=== PATIENT | female | born 1960 | race Caucasian/White ===

== ENCOUNTER → 2020-06-12 10:47 | Outpatient (CLI) | payer OTHER, SELFPAY ==
--- NOTE | ~2020-06-12 | MM_ITS ---
EXAMINATION: MM screening sussy BI w vianney HISTORY: Screening TECHNIQUE: Craniocaudal and mediolateral oblique 3-D tomosynthesis images were obtained and synthetic 2-D images were generated. CAD analysis was submitted and interpreted. COMPARISON: Comparison to multiple prior studies sequentially, with oldest reviewed study dated 09/2013. BREAST PARENCHYMAL COMPOSITION: There are scattered areas of fibroglandular density. FINDINGS: There is no evidence of suspicious mass, calcification, or architectural distortion to sugg est malignancy in either breast. There has been no suspicious interval change. IMPRESSION: 1. No mammographic evidence of malignancy. 2. Recommend routine screening mammography in one year. BI-RADS Category 1: Negative Reviewed, dictated and finalized at location A. 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
== END ==
PROVIDERS: PCP Family Medicine; Visit Provider Obstetrics & Gynecology
DX: Z12.31 Encounter for screening mammogram for malignant neoplasm of breast (principal)
CPT/HCPCS: 77063; 77067

== ENCOUNTER → 2021-01-01 10:22 | Outpatient (CLI) | payer OTHER, SELFPAY ==
--- NOTE | ~2021-01-01 | US_ITS ---
EXAMINATION: US retroperitoneal duplex ltd DATE: 01/01/2021 11:08 INDICATION: Hypertension. TECHNIQUE: Multiple grayscale, color Doppler, and pulsed Doppler images of the kidneys and renal david giovanny were obtained. COMPARISON: Ultrasound 06/19/2019 FINDINGS: The aorta peak systolic velocity is 102 cm/s. The right renal artery peak systolic velocity is 109 cm /s in the proximal segment, 102 cm/s in the mid segment, and 79 cm/s in the distal segment. The left renal artery peak systolic velocity is 84 cm/s in the proximal segment, 75 cm/s in the mid segment, a nd 68 cm/s in the distal segment. IMPRESSION: 1. No Doppler evidence of renal artery stenosis. Reviewed, dictated and finalized at location A.
--- NOTE | ~2021-01-01 | US_ITS ---
EXAMINATION: US renal BI DATE: 01/01/2021 11:08 INDICATION: Stage IIIB chronic kidney disease. TECHNIQUE: Multiple ultrasound grayscale images of the kidneys were obtained. COMPARISON: Ultrasound 06/19/2019 FINDINGS: The right kidney measures 9.5 x 5.4 x 4.7 cm. The left kidney measures 9.9 x 6.1 x 4.6 cm. The kidney s demonstrate normal parenchymal echogenicity. There is a 3.4 cm mass in right kidney upper pole. The re is no hydronephrosis. The bladder is normal. IMPRESSION: 1. 3.4 cm mass in right kidney upper pole suspicious for renal cell carcinoma. Abdomen CT without an d with contrast is recommended. 2. Normal kidney sizes. No hydronephrosis. Reviewed, dictated and finalized at location A. IMPRESSION: 1. 3.4 cm mass in right kidney upper pole suspicious for renal cell carcinoma. Abdomen CT without and with contrast is recommended. 2. Normal kidney sizes. No hydronephrosis.
== END ==
PROVIDERS: PCP Family Medicine; Visit Provider Internal Medicine Nephrology
DX: I12.9 Hypertensive chronic kidney disease with stage 1 through stage 4 chronic kidney disease, or unspecified chronic kidney disease (principal); N18.32 Chronic kidney disease, stage 3b
CPT/HCPCS: 76775; 93976

== ENCOUNTER → 2021-06-03 10:08 | Outpatient (CLI) | payer OTHER, SELFPAY ==
--- NOTE | ~2021-06-03 | MM_ITS ---
EXAMINATION: MM screening sussy BI w vianney HISTORY: Screening mammogram TECHNIQUE: Craniocaudal and mediolateral oblique 3-D tomosynthesis images were obtained and synthetic 2-D images were generated. CAD analysis was submitted and interpreted. COMPARISON: 06/12/2020, 06/21/2019, 06/16/2018 bilateral screening mammogram examinations BREAST PARENCHYMAL COMPOSITION: There are scattered areas of fibroglandular density. FINDINGS: There is no evidence of suspicious mass, calcification, or architectural distortion to sugg est malignancy in either breast. There has been no suspicious interval change. IMPRESSION: 1. No mammographic evidence of malignancy. 2. Recommend routine screening mammography in one year. BI-RADS Category 1: Negative Reviewed, dictated and finalized at location A. 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
== END ==
PROVIDERS: PCP Family Medicine; Visit Provider Obstetrics & Gynecology
DX: Z12.31 Encounter for screening mammogram for malignant neoplasm of breast (principal)
CPT/HCPCS: 77063; 77067

== ENCOUNTER → 2022-02-06 07:50 | Outpatient (CLI) | payer BC, SELFPAY ==
--- NOTE | ~2022-02-06 | US_ITS ---
EXAMINATION: US retroperitoneal comp DATE: 02/06/2022 08:19 INDICATION: 3b chronic kidney disease TECHNIQUE: Multiple ultrasound grayscale images of the retroperitoneum were obtained. COMPARISON: 01/01/2021 FINDINGS: The right kidney measures 8.7 x 4.0 x 5.5 cm. The left kidney measures 10.2 x 5.2 x 5.0 cm. The kidne ys demonstrate normal parenchymal echogenicity. 3.1 cm complex right superior lateral renal mass, lydia ssly stable given interval differences in technique. 0.7 cm lateral left renal cyst. There is no hydr onephrosis. The bladder is normal, prevoid volume 149.8 mL. Post void volume 0 mL. IMPRESSION: 1. Suspicious right renal mass. If outside imaging has not been performed, prior recommendation for CT of the abdomen without and with contrast is unchanged. Reviewed, dictated and finalized at location K. IMPRESSION: 1. Suspicious right renal mass. If outside imaging has not been performed, christiana or recommendation for CT of the abdomen without and with contrast is unchanged.
== END ==
PROVIDERS: PCP Family Medicine; Visit Provider Internal Medicine Nephrology
DX: R79.89 Other specified abnormal findings of blood chemistry (principal); N17.9 Acute kidney failure, unspecified
CPT/HCPCS: 76770

== ENCOUNTER → 2022-06-10 12:53 | Outpatient (CLI) | payer BC, SELFPAY ==
--- NOTE | ~2022-06-10 | MM_ITS ---
EXAMINATION: MM screening [facility] BI w vianney HISTORY: Screening mammogram TECHNIQUE: Craniocaudal and mediolateral oblique 3-D tomosynthesis images were obtained and synthetic 2-D images were generated. CAD analysis was submitted and interpreted. COMPARISON: 06/03/2021, 06/12/2020, 06/21/2019 BREAST PARENCHYMAL COMPOSITION: There are scattered areas of fibroglandular density. FINDINGS: No suspicious mass, calcification, or architectural distortion are identified in either kin ast to suggest malignancy. There has been no suspicious interval change. IMPRESSION: 1. No mammographic evidence of malignancy. 2. Recommend routine screening mammography in one year. BI-RADS Category 1: Negative Reviewed, dictated and finalized at location A. ASSISTANT
== END ==
PROVIDERS: PCP Family Medicine; Visit Provider Obstetrics & Gynecology
DX: Z12.31 Encounter for screening mammogram for malignant neoplasm of breast (principal)
CPT/HCPCS: 77063; 77067

== ENCOUNTER → 2023-03-10 09:21 | Outpatient (CLI) | payer BC, SELFPAY ==
--- NOTE | ~2023-03-10 | XR_ITS ---
EXAMINATION: XR abdomen/kub 1V INDICATION: Calculus of the kidney TECHNIQUE: Supine views of the abdomen were obtained on 2 radiographs. COMPARISON: None FINDINGS: There appears to be a 2 mm stone of the right kidney lower pole. There are multiple pelvic calcifications. A moderate volume of colonic stool is present. 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 Calcified granulomas noted in the right lung base. IMPRESSION: 1. Probable 2 mm stone of the right kidney lower pole. 2. Multiple pelvic calcifications, likely phleboliths however urinary tract stone is not excluded. Reviewed, dictated and finalized at location L. IMPRESSION: 1. Probable 2 mm stone of the right kidney lower pole. 2. Multiple pelvic calcifications, likely phleboliths however urinary tract sto ne is not excluded.
== END ==
PROVIDERS: PCP Internal Medicine Nephrology; Visit Provider Urology
DX: N20.0 Calculus of kidney (principal)
CPT/HCPCS: 74018

== ENCOUNTER 2023-09-29 10:23 | Outpatient (CLI) | payer BC, SELFPAY ==
--- NOTE | ~2023-09-29 | MM_ITS ---
EXAMINATION: MM screening sussy BI w vianney HISTORY: Screening mammogram TECHNIQUE: Craniocaudal and mediolateral oblique 3-D tomosynthesis images were obtained and synthetic 2-D images were generated. CAD analysis was submitted and interpreted. COMPARISON: 06/10/2022, 06/03/2021 bilateral screening mammogram examinations BREAST PARENCHYMAL COMPOSITION: There are scattered areas of fibroglandular density. FINDINGS: There is a cluster grouped microcalcifications in the lower outer quadrant of the right kin ast. Diagnostic right mammogram with magnification views is recommended, with ultrasound if required. Otherwise no suspicious mass, architectural distortion, malignant calcification, skin thickening or r etraction or significant new or developing density of either breast is detected. IMPRESSION: 1. Microcalcifications, lower outer right breast 2. Diagnostic right mammogram with magnification views is recommended, with ultrasound if required BI-RADS Category 0: Incomplete: Needs additional imaging evaluation. Reviewed, dictated and finalized at location A. IMPRESSION: 1. Microcalcifications, lower outer right breast 2. Diagnostic right mammogram with magnification views is recommended, with ult rasound if required BI-RADS Category 0: Incomplete: Needs additional imaging evaluation.
== END 2023-09-29 10:24 ==
LOC: MICIMG 10:24
PROVIDERS: PCP Obstetrics & Gynecology; Visit Provider Obstetrics & Gynecology
DX: Z12.31 Encounter for screening mammogram for malignant neoplasm of breast (principal); R92.8 Other abnormal and inconclusive findings on diagnostic imaging of breast
CPT/HCPCS: 77063; 77067

== ENCOUNTER 2023-11-18 08:46 | Outpatient (CLI) | payer BC, SELFPAY ==
--- NOTE | ~2023-11-18 | MMUS_ITS ---
EXAMINATION: MM diagnostic mammo unilat RT, US breast RT limited HISTORY: Clustered microcalcifications, lower outer quadrant of right breast reported on 09/29/2023 sc reening mammogram examination TECHNIQUE: ML view of right breast. Magnification ML, MLO and CC views of lower outer quadrant CAD an alysis was submitted and interpreted. High resolution lower outer quadrant right breast ultrasound wa s performed. COMPARISON: 09/29/2023, 06/10/2022, 06/03/2021 bilateral screening mammogram examinations BREAST PARENCHYMAL COMPOSITION: There are scattered areas of fibroglandular density. FINDINGS: MAMMOGRAPHIC FINDINGS: Indeterminate grouped microcalcifications are noted in the lower outer quadrant of the right breast. ULTRASOUND: No suspicious mass or shadowing or other significant sonographic abnormality is noted in the lower ou ter quadrant of the right breast. IMPRESSION: 1. Indeterminate cluster of grouped microcalcifications, lower outer quadrant of right breast, has de veloped in this postmenopausal 63-year-old patient 2. Stereotactic biopsy of lower outer quadrant microcalcifications is recommended BI-RADS category 4, suspicious findings. Dr. Shaver telephoned the report and stereotactic biopsy recommendation for the lower outer quadrant mi crocalcifications to Ruchi Riggs on 11/18/2023 at 1015 hours. Reviewed, dictated and finalized at location B. IMPRESSION: 1. Indeterminate cluster of grouped microcalcifications, lower outer quadrant o f right breast, has developed in this postmenopausal 63-year-old patient 2. Stereotactic biopsy of lower outer quadrant microcalcifications is recommend ed BI-RADS category [address] Shaver telephoned the report and stereotactic biopsy recommendation for the l ower outer quadrant microcalcifications to Ruchi Riggs on 11/18/2023 at 1015 ho urs.
== END 2023-11-18 08:47 ==
LOC: MICIMG 08:47
PROVIDERS: PCP Obstetrics & Gynecology; Visit Provider Obstetrics & Gynecology
DX: R92.0 Mammographic microcalcification found on diagnostic imaging of breast (principal); R92.8 Other abnormal and inconclusive findings on diagnostic imaging of breast
CPT/HCPCS: 76642; 77065